=== PATIENT | male | born 2000 | race Caucasian/White ===

== ENCOUNTER 2022-03-30 08:17 | Emergency (ER) | payer SELFPAY ==
[~2022-03-30] VITALS: Ht 170.2 cm; Wt 66.8 kg
[2022-03-30 09:05] VITALS: BP 134/70
[2022-03-30] MEDS ORDERED: IBUP-2213 PO (10:58)
--- NOTE | 2022-03-30 11:05 | NUR ---
Patient discharged with v/s stable. Written and verbal after care instructions about shoulder pain given and explained. Patient alert, oriented and verbalized understanding of instructions. Ambulatory with steady gait. All questions addressed prior to discharge. ID band removed. Patient advised to follow up with PMD. Rx of motrin given. Patient educated on indication of medication including possible reaction and side effects. Opportunity to ask questions provided and answered.
== END 2022-03-30 11:05 | disposition home or self-care (01) ==
LOC: MED 08:17
DX: M25.512 Pain in left shoulder (principal); Z88.0 Allergy status to penicillin
CPT/HCPCS: 73030; 99283

== ENCOUNTER 2022-04-04 12:33 | Emergency (ER) | payer SELFPAY ==
[~2022-04-04] VITALS: Ht 170.2 cm; Wt 65.3 kg
[~2022-04-04 12:33] MED LIST: IBUP-2213 PO
[2022-04-04 12:52] VITALS: BP 120/71
[2022-04-04] MEDS ORDERED: NAPR-1704 PO (12:59)
--- NOTE | 2022-04-04 13:23 | NUR ---
Patient discharged with v/s stable. Written and verbal after care instructions ABOUT SHOULDER PAIN given and explained. Patient alert, oriented and verbalized understanding of instructions. Carried with steady gait. All questions addressed prior to discharge. ID band removed. Patient advised to follow up with PMD. Rx of NAPROXEN given. Patient educated on indication of medication including possible reaction and side effects. Opportunity to ask questions provided and answered.
== END 2022-04-04 13:23 | disposition home or self-care (01) ==
LOC: MED 12:33
DX: M25.512 Pain in left shoulder (principal); Z88.0 Allergy status to penicillin; Z79.899 Other long term (current) drug therapy
CPT/HCPCS: 99282